=== PATIENT | female | born 1985 | race Caucasian/White ===

== ENCOUNTER 2017-07-23 17:30 | Emergency (ER) | payer SELFPAY ==
[2017-07-23] MEDS ORDERED: Lidocaine 1% PF 5 ML VIAL ONE (17:58)
[2017-07-23] MEDS ORDERED: cefTRIAXone\\ROCEPHIN 250 MG VIAL ONE (17:58)
[2017-07-23] MEDS ORDERED: Azithromycin 250 MG TAB ONE ×2 (17:58→17:59)
== END 2017-07-23 18:12 | disposition home or self-care (01) ==
LOC: ERS 17:30
DX: A64 Unspecified sexually transmitted disease (principal); F17.210 Nicotine dependence, cigarettes, uncomplicated
CPT/HCPCS: 96372; J0696; J2001

== ENCOUNTER 2020-07-21 21:21 | Emergency (ER) | payer SELFPAY ==
[2020-07-21 22:11] LABS: #Basophils 0.1 thou/uL (0.0-0.2); #Eosinphils 0.1 thou/uL (0.0-0.7); #Lymphocytes 3.7 thou/uL (1.20-3.40); #Monocytes 0.8 thou/uL (0.11-0.59); %Basophils 0.5 % (0.0-1.0); %Eosinophils 1.4 % (0.0-10.0); %Lymphocytes 34.4 % (21.0-51.0); %Monocytes 7.8 % (0.0-10.0); %Neutrophils 55.9 % (42.0-75.0); Hemoglobin 14.9 g/dL (12.0-16.0); Mean Corpuscular HGB CONC 34.4 g/dL (32.0-36.0); Mean Corpuscular Hemoglobin 33.2 pg (27.0-31.0); Mean Corpuscular Volume 96.7 fL (78.0-98.0); Mean Platelet Volume 7.3 fL (7.4-10.4); Platelet Count 274 thou/uL (130-400); RBC Distribution Width 11.3 % (11.5-14.5); Red Blood Cell (RBC) Count 4.49 mill/uL (4.20-5.40); White Blood Cell (WBC) Count 10.7 thou/uL (4.8-10.8)
[2020-07-21] MEDS ORDERED: Mag-Al 1200 mg/1200 mg/30 ML UDCUP ONE (22:26)
[2020-07-21] MEDS ORDERED: Lidocaine Viscous Sol 2% 15 ml UD Cup ONE (22:26)
[2020-07-21 22:31] LABS: ALT (SGPT) 35 U/L (8-55); AST (SGOT) 20 U/L (5-34); Albumin 4.4 g/dL (3.5-5.0); Alkaline Phosphatase 79 U/L (40-110); Anion Gap 12 mmol/L (10-20); BUN (Urea Nitrogen) 12 mg/dL (7.0-18.7); Bilirubin, Total 0.4 mg/dL (0.2-1.2); Calc. Creatinine Clearance 0 mL/min (70-130); Calcium 9.7 mg/dL (7.8-10.44); Carbon Dioxide 25 mmol/L (22-29); Chloride 104 mmol/L (98-107); Estimated GFR-MDRD 75; Globulin 3.2 g/dL (2.4-3.5); Glucose 94 mg/dL (70-105); Lipase 36 U/L (8-78); Potassium 4.1 mmol/L (3.5-5.1); Protein, Total 7.6 g/dL (6.0-8.3); Sodium 137 mmol/L (136-145)
--- NOTE | 2020-07-22 07:17 | ULT ---
GALLBLADDER ULTRASOUND: Date: 07/21/2020 HISTORY: Right upper quadrant pain. FINDINGS: Real-time imaging of the right upper quadrant shows echogenic foci with shadowing within the gallblad jayshree consistent with gallstones. Also, some sludge is noted within the gallbladder. There is a positiv e ultrasound Richardson's sign. Common duct is 5-6 mm. Liver measures 18.0 cm in length and appears to be of increased echogenicity suggesting some fatty change. Right kidney is normal in size and not obstructed. The pancreas is obscured. IMPRESSION: 1. Cholelithiasis with a normal caliber common duct and positive ultrasound Richardson's sign. 2. Fatty change of the liver. POS: SHIVANI
== END 2020-07-22 00:54 ==
LOC: ERS 21:21
DX: K80.20 Calculus of gallbladder without cholecystitis without obstruction (principal); F17.210 Nicotine dependence, cigarettes, uncomplicated
CPT/HCPCS: 36415; 76705; 80053; 83690; 85025